=== PATIENT | male | born 1940 | race Caucasian/White ===

== ENCOUNTER → 2020-11-02 16:35 | Outpatient (CLI) | payer MEDICARE, OTHER, SELFPAY | PROVIDERS: PCP Family Medicine; Visit Provider Nurse Practitioner Adult Health | DX: R35.0 Frequency of micturition (principal) | CPT/HCPCS: 87086 ==

== ENCOUNTER 2020-12-16 08:24 | Day surgery (SDC) | payer MEDICARE, OTHER, SELFPAY ==
--- NOTE | 2020-11-12 11:10 | EKG12_ITS ---
Test Reason : PREOP Blood Pressure : / mmHG Vent. Rate : 055 BPM Atrial Rate : 055 BPM P-R Int : 172 ms QRS Dur : 082 ms QT Int : 378 ms P-R-T Axes : 050 -11 034 degrees QTc Int : 361 ms Sinus bradycardia Inferior infarct , age undetermined Abnormal ECG Confirmed by KAE PATEL, LUIS ([id number]), editor in chief CHELSEY AWAN ([id number]) on 11/13/2020 11:29:54 AM Referred By: Chandu Borrero Confirmed By:LUIS PAL MD
[2020-11-12 12:37] LABS: Hematocrit 45.6 % (40-54); Hemoglobin 15.1 g/dL (13.0-16.5); Mean Corp Hgb Conc 33.1 g/dL (32-36); Mean Corpuscular Hgb 30.3 pg (27.0-32.0); Mean Corpuscular Volume 91.6 fL (80-94); Mean Platelet Vol. 9.6 fl (6.2-12.0); Platelet Count 218 K/mm3 (150-450); RBC Distribution Width CV 14.3 % (11.6-14.6); RBC Distribution Width SD 46.8 fl (35.1-43.9); Red Blood Count 4.98 M/mm3 (4.6-6.2)
[2020-11-12 12:48] LABS: Prothrombin Time (Protime)PT. 12.6 SECONDS (11.7-14.9)
[2020-11-12 12:49] LABS: Partial Thromboplast Time 31.1 Seconds (24.1-36.2)
[2020-11-12 13:13] LABS: Thyroid Stim Hormone (TSH) 0.58 uIU/mL (0.358-3.74)
[2020-12-16 08:59] VITALS: BP 138/95; PULSE 79; RESP 16; TEMP 36.6; O2SAT 95; BMI 39.1
[2020-12-16] MEDS: Lactated Ringers 1,000 ML 100 ML IV (09:18)
[2020-12-16] MEDS: Cefazolin 2 GM in 0.9% Normal Saline 100 ML IV (11:11)
--- NOTE | 2020-12-16 11:20 | HP.PCM_ITS ---
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 [facility] Medical History (Updated 12/16/20 @ 11:[address] Chandu Borrero MD) Anemia Back pain Bladder disease Cancer Cardiology follow-up encounter Dementia DVT (deep venous thrombosis) High cholesterol Non-smoker Prostate disease Thyroid disease Wears dentures Wears glasses Wears partial dentures Home Medications PreserVision AREDS-2 1 tab PO BID 11/12/20 [History Last Taken Unknown] ascorbic acid (vitamin C) [Vitamin C] 500 mg PO DAILY 11/12/20 [History Last Taken Unknown] cholecalciferol (vitamin D3) [Vitamin D3] 50 mcg PO DAILY 11/12/20 [History Last Taken Unknown] cyanocobalamin (vitamin B-12) [Vitamin B-12] 1,000 mcg PO DAILY 11/12/20 [History Last Taken Unknown] donepezil 10 mg PO QHS 11/12/20 [History Last Taken Unknown] ferrous sulfate [Iron (ferrous sulfate)] 325 mg PO DAILY 11/12/20 [History Last Taken Unknown] levothyroxine 75 mcg PO DAILY 11/12/20 [History Last Taken 12/16/20] memantine 10 mg PO BID 11/12/20 [History Last Taken Unknown] simvastatin 40 mg PO QHS 11/12/20 [History Last Taken Unknown] zolpidem 5 - 10 mg PO QHS 11/12/20 [History Last Taken Unknown] Allergy/AdvReac Type Severity Reaction Status Date / Time No Known Allergies Allergy Verified 12/16/20 08:58 Surgical History History of urologic surgery Hx of colonoscopy Hx of inguinal hernia surgery Hx of left cataract extraction Hx of repair of right rotator cuff Social History Smoking Status: Never smoker ROS Constitutional Constitutional: Denies chills, fever(s) or malaise Eyes Eyes: Denies blurry vision or change in vision ENT HEENT: Reports none Cardiovascular Cardiovascular: Denies chest pain or palpitations Respiratory/Chest Respiratory/Chest: Denies cough or shortness of breath with exertion Gastrointestinal Gastrointestinal: Denies abdominal pain, constipation or diarrhea Genitourinary Genitourinary: Reports systems reviewed and no addt'l complaints, except as documented Musculoskeletal Musculoskeletal: Denies back pain, joint stiffness or joint swelling Integumentary Integumentary: Denies dry skin, jaundice, lesions or rash Neurologic Neurologic: Denies confusion, syncope or weakness Psychiatric Psychiatric: Reports none; Denies anxiety or depression Endocrine Endocrinology: Denies excessive sweating, fatigue or flushing Hematologic/Lymphatic Hematologic/Lymphatic: Denies anemia, easy bleeding or easy bruising Vital Signs Vital Signs Vital Signs: 12/16/20 08:59 Temperature 97.9 F Temperature Source Temporal Pulse Rate 79 Respiratory Rate 16 Respiratory Pattern Normal Blood Pressure 138/95 H Blood Pressure Mean 109 Blood Pressure Source Monitor Blood Pressure Position Semi-Fowlers Blood Pressure Location Left Arm Pulse Ox 95 Oxygen Delivery Method Room Air Weight Weight: 93.9 kg Body Mass Index (BMI) 39.1 Physical Exam Const alert and oriented x3 General Appearance: cooperative HEENT normocephalic, head/scalp atraumatic, EAC's normal and TM's normal bilaterally Eyes PERRL and EOMs intact bilaterally Pupil: sluggish Neck no lymphadenopathy, supple and no JVD General: trachea midline Lymph Lymphatic: no lymphadenopathy noted, lymphedema and lymphadenopathy Resp normal respiratory effort, normal air movement and clear to auscultation bilaterally Cardio regular rate, regular rhythm and peripheral pulses 2+ throughout GI soft to palpation, non-tender and non-distended Extremity normal capillary refill and no clubbing, cyanosis or edema General Extremity: no tenderness to palpation of joints or extremities Skin no rashes or lesions noted General Skin Exam: turgor normal Lesions: no lesions Rashes: no rashes Neuro CN's II-XII intact bilaterally Speech: speech normal Motor Exam: strength 5/5 throughout; Negative for general weakness Psych thought process normal, cooperative and affect normal Appearance: appropriate Results Lab / Micro Data Result Diagrams: 11/12/20 11:38 Assessment & Plan Assessment/Plan (1) BPH with obstruction/lower urinary tract symptoms: (2) Bladder stone: PLAN: Plan to proceed with a transurethral section of prostate and laser bladder stone.
--- NOTE | 2020-12-16 11:21 | DCINST_ITS ---
Discharge Instructions Diet Discharge Diet: No restrictions Activity Discharge Activity: Return to Normal Activity and May Not Drive (while taking narcotic pain medications.) Dressing / Incision Call your doctor if you observe: Fever of 101 or Higher Follow Up Care Please Follow Up With: Chandu Borrero MD When: Call [phone] for an appointment Test Results: Test results from this visit will be discussed in further detail at your follow-up appointment, if applicable. Discharge Plan Admission Primary Reason for Your Visit: turp, laser bladder stones Attending Provider: Chandu Borrero Primary Care Provider: Hernesto Prater Discharge Orders/Prescriptions Prescriptions: Continued donepezil 10 mg Tablet 10 mg PO QHS RF: 0 cyanocobalamin (vitamin B-12) [Vitamin B-12] 1,000 mcg Tablet 1,000 mcg PO DAILY RF: 0 simvastatin 40 mg Tablet 40 mg PO QHS RF: 0 levothyroxine 75 mcg Tablet 75 mcg PO DAILY RF: 0 ferrous sulfate [Iron (ferrous sulfate)] 325 mg (65 mg iron) Tablet 325 mg PO DAILY RF: 0 ascorbic acid (vitamin C) [Vitamin C] 500 mg Tablet,Chewable 500 mg PO DAILY RF: 0 zolpidem 5 mg Tablet 5 - 10 mg PO QHS RF: 0 memantine 10 mg Tablet 10 mg PO BID RF: 0 cholecalciferol (vitamin D3) [Vitamin D3] 50 mcg (2,000 unit) Capsule 50 mcg PO DAILY RF: 0 PreserVision AREDS-2 250-90-40-1 mg Capsule 1 tab PO BID RF: 0 Discontinued oxybutynin chloride 10 mg Tablet Extended Release 24hr 10 mg PO BID RF: 0 aspirin [Aspir-81] 81 mg Tablet,Delayed Release (Dr/Ec) 81 mg PO DAILY RF: 0 alfuzosin 10 mg Tablet Extended Release 24 Hr 10 mg PO QHS RF: 0 Other Ambulatory Orders: 12 Lead EKG (Routine) Timeframe: 20201112 Facility: [facility] - Location: Cardiovascular Services Ordered By: Dr. Nik Oliver Referrals / Follow Up: Hernesto Prater MD [Primary Care Provider] - Chandu Borrero MD [STAFF PHYSICIAN] - Disposition Disposition (needs filled in before D/C Order can be placed): Home, Self Care
--- NOTE | 2020-12-16 11:40 | PCM.OPRPT ---
Report of Operation Date of Procedure: 12/16/20 Pre-Operative Diagnosis: Obstruction of the urinary channel by a large bladder stone Post-Operative Diagnosis: Same Surgery/Procedure Performed:: Cystoscopy cystolitholapaxy of a large bladder stone Description of Surgical Findings:: Patient was taken back to the operating room after smooth induction of general anesthesia he was placed in dorsolithotomy position within the bladder with a 21 Romanian cystoscopy urethroscope and found a very large stone that was right at the bladder neck causing obstruction so I switched over the laser bridge and then using the 1000 ?m laser fiber the stone was lasered a little tiny pieces and then all the pieces were then evacuated of the bladder to about 45 minutes to laser the stone once all the stone pieces were out of the bladder had a wide open channel with no obstruction from the sphincter into the bladder neck so therefore I decided not to do a TURP since he had a wide open channel and the source of his problem was just a bladder stone. Patient be discharged home today follow-up in the office in a few weeks. Surgeon: Adair Type of Anesthesia: General Admit VTE Documentation VTE Present on Admission: No VTE Mechan Device Prophylaxis: SCD's
[2020-12-16 11:48] VITALS: BP 122/89; BP 138/95; PULSE 70; RESP 16; TEMP 37; O2SAT 94
[2020-12-16 12:00] VITALS: BP 126/83; BP 138/95; PULSE 72; RESP 16; O2SAT 94
[2020-12-16 12:15] VITALS: BP 131/89; BP 138/95; PULSE 76; RESP 16; O2SAT 94
[2020-12-16 12:32] VITALS: BP 128/76; BP 138/95; PULSE 97; RESP 16; TEMP 36.2; O2SAT 96
[2020-12-16 13:08] VITALS: BP 138/95; BP 152/78; PULSE 60; RESP 18; TEMP 36.3; O2SAT 94
== END 2020-12-16 13:36 | disposition home or self-care (01) ==
LOC: SDC 08:26 → AC 08:28
PROVIDERS: Anesthesiology; PCP Family Medicine; Referring Provider Urology; Visit Provider Urology
PROC: (CPT 52318; 2020-12-16 10:20)
DX: N21.0 Calculus in bladder (principal); N40.1 Benign prostatic hyperplasia with lower urinary tract symptoms; N13.8 Other obstructive and reflux uropathy; E07.9 Disorder of thyroid, unspecified; E78.00 Pure hypercholesterolemia, unspecified; D64.9 Anemia, unspecified; F03.90 Unspecified dementia, unspecified severity, without behavioral disturbance, psychotic disturbance, mood disturbance, and anxiety; R23.3 Spontaneous ecchymoses; Z79.899 Other long term (current) drug therapy
CPT/HCPCS: 52318; 36415; 84443; 85027; 85610; 85730; 93005; J7120; J0744; J2405

== ENCOUNTER → 2022-10-26 | Outpatient (CLI) | payer MEDICARE, SELFPAY ==
--- NOTE | 2022-10-26 13:57 | CT_ITS ---
STUDY: CT MAXILLOFACIAL SINUSES REASON FOR EXAM: Male, 82 years old. SINUSITIS RADIATION DOSAGE (If Supplied By Facility): CTDIvol = ( 33.06 ) mGy, DLP = ( 792.53 ) mGycm TECHNIQUE: The patient was scanned in a multi detector CT scanner. High resolution axial imaging was performed without the administration of intravenous contrast material. Sagittal and coronal images were reconstructed. Individualized dose optimization techniques were used for this CT. COMPARISON: None. FINDINGS: FRONTAL SINUSES: Minimal mucosal thickening along the posterior lateral aspect of the left frontal sinus. ETHMOIDAL SINUSES: Normal aeration, without mucosal inflammatory disease. MAXILLARY SINUSES: Minimal degree of mucosal thickening along the lateral wall of the right maxillary sinus. SPHENOIDAL SINUSES: Normal aeration, without mucosal inflammatory disease. There is patency of the bilateral maxillary infundibuli with normal uncinate processes, ethmoid bullae, and hiatus semilunaris. Normal bilateral middle turbinates. Normal bilateral inferior turbinates. There is a right sided nasal septal deviation, but without a nasal septal spur. There is patency of the bilateral nasal airways. The visualized osseous structures are normal. The visualized bilateral orbital contents are normal. CT/Sinus/Facial Bone IMPRESSION: Minimal degree of mucosal thickening of the left frontal sinus and right maxillary sinus. Electronically Signed: Taran Marcelino MD at 10:37 EDT ,
== END | disposition home or self-care (01) ==
PROVIDERS: PCP Family Medicine; Referring Provider Otolaryngology; Visit Provider Otolaryngology
DX: J32.8 Other chronic sinusitis (principal)
CPT/HCPCS: 70486